=== PATIENT | female | born 1995 | race Two or more races ===

== ENCOUNTER 2018-04-27 11:53 | Emergency (ER) | payer OTHER ==
[~2018-04-27] VITALS: Ht 157.5 cm; Wt 91.6 kg
[2018-04-27 12:03] VITALS: Ht 157.5 cm; Wt 91.6 kg
[2018-04-27 14:14] VITALS: BP 106/61
== END 2018-04-27 14:14 | disposition home or self-care (01) ==
LOC: ED 11:53
DX: R51 Headache (principal)
CPT/HCPCS: J1885; J2765; Q0163